=== PATIENT | male | born 1930 | race Caucasian/White ===

== ENCOUNTER → 2016-05-13 | Outpatient (CLI) | payer MEDICARE ==
[~2016-05-13] MED LIST: AMLO5 PO; ATEN1TAB74 PO; HYDR-3288 PO; LEVO75TA3 PO; LISI10TA3 PO; LOPE7.5C PO; LOVA20TA PO; POTA10TA8 PO; PRIL20CA9 PO; PROBCAP11 PO
[2016-05-13 12:36] LABS: AUTOMATED NEUTROPHIL # 3.3 TH/MM3 (1.8-7.7); BASOPHIL % 0.6 % (0.0-2.0); EOSINOPHIL # 0.2 TH/MM3 (0-0.4); EOSINOPHIL % 4.2 % (0.0-4.0); HEMATOCRIT 39.6 % (39.0-51.0); HEMO FLAGS DIFF FINAL; LYMPH % 24.4 % (9.0-44.0); LYMPHOCYTE # 1.4 TH/MM3 (1.0-4.8); MEAN CELL VOLUME 93.8 FL (80.0-100.0); MEAN CORPUSCULAR HGB CONC 34.1 % (32.0-36.0); MONO % 10.5 % (0.0-8.0); NEUT % 60.3 % (16.0-70.0); PLATELET COUNT 145 TH/MM3 (150-450); RED BLOOD COUNT 4.22 MIL/MM3 (4.50-5.90); RED CELL DISTRIBUTION WIDTH 13.9 % (11.6-17.2); WHITE BLOOD COUNT 5.5 TH/MM3 (4.0-11.0)
== END ==
LOC: PLAB 08:12
PROVIDERS: ATTEND Orthopaedic Surgery Sports Medicine
DX: Z01.812 Encounter for preprocedural laboratory examination (principal); Z01.818 Encounter for other preprocedural examination; M75.01 Adhesive capsulitis of right shoulder
CPT/HCPCS: 36415; 85025

== ENCOUNTER → 2016-06-21 | Outpatient (CLI) | payer MEDICARE ==
[2016-06-21 09:41] LABS: ALKALINE PHOSPHATASE 83 U/L (45-117); ALT (GPT) 25 U/L (12-78); ANION GAP 7 MEQ/L (5-15); AST (GOT) 24 U/L (15-37); BLOOD UREA NITROGEN 17 MG/DL (7-18); CHLORIDE 103 MEQ/L (98-107); GLOMERULAR FILTRATION RATE 78 ML/MIN (>89); GLUCOSE,FASTING 105 MG/DL (74-99); LDL CHOLESTEROL 52 MG/DL (0-99); POTASSIUM 3.9 MEQ/L (3.5-5.1); SODIUM (NA) 140 MEQ/L (136-145); TOTAL BILIRUBIN ADULT 0.5 MG/DL (0.2-1.0)
[2016-06-21 10:22] LABS: CREATINE KINASE 63 U/L (39-308)
== END ==
LOC: PLAB 06:45
DX: E78.5 Hyperlipidemia, unspecified (principal); E03.9 Hypothyroidism, unspecified; Z79.899 Other long term (current) drug therapy
CPT/HCPCS: 36415; 80053; 80061; 82550; 84443

== ENCOUNTER → 2016-08-26 | Outpatient (CLI) | payer MEDICARE ==
[2016-08-26 12:57] LABS: AUTOMATED NEUTROPHIL # 3.7 TH/MM3 (1.8-7.7); BASOPHIL % 0.6 % (0.0-2.0); EOSINOPHIL # 0.2 TH/MM3 (0-0.4); EOSINOPHIL % 3.7 % (0.0-4.0); HEMATOCRIT 39.9 % (39.0-51.0); HEMO FLAGS DIFF FINAL; LYMPH % 19.4 % (9.0-44.0); LYMPHOCYTE # 1.1 TH/MM3 (1.0-4.8); MEAN CELL VOLUME 93.3 FL (80.0-100.0); MEAN CORPUSCULAR HEMOGLOBIN 31.5 PG (27.0-34.0); MEAN CORPUSCULAR HGB CONC 33.8 % (32.0-36.0); MONO % 10.1 % (0.0-8.0); NEUT % 66.2 % (16.0-70.0); PLATELET COUNT 161 TH/MM3 (150-450); RED BLOOD COUNT 4.27 MIL/MM3 (4.50-5.90); RED CELL DISTRIBUTION WIDTH 14.4 % (11.6-17.2); WHITE BLOOD COUNT 5.6 TH/MM3 (4.0-11.0)
[2016-08-26 13:17] LABS: ANION GAP 4 MEQ/L (5-15); AST (GOT) 30 U/L (15-37); BICARBONATE 32.9 MEQ/L (21.0-32.0); BLOOD UREA NITROGEN 12 MG/DL (7-18); CHLORIDE 105 MEQ/L (98-107); GLOMERULAR FILTRATION RATE 81 ML/MIN (>89); GLUCOSE,FASTING 96 MG/DL (74-99); POTASSIUM 4.2 MEQ/L (3.5-5.1); SODIUM (NA) 142 MEQ/L (136-145)
[2016-08-26 13:27] LABS: ALKALINE PHOSPHATASE 67 U/L (45-117); ALT (GPT) 34 U/L (12-78); HDL CHOLESTEROL 34.6 MG/DL (40.0-60.0); LDL CHOLESTEROL 61 MG/DL (0-99); TOTAL BILIRUBIN ADULT 0.6 MG/DL (0.2-1.0)
[2016-08-26 13:29] LABS: CREATINE KINASE 74 U/L (39-308)
[2016-08-26 13:33] LABS: WESTERGREN SEDIMENTATION RATE 23 mm/hr (0-20)
== END ==
LOC: PLAB 09:23
PROVIDERS: ATTEND Internal Medicine Cardiovascular Disease
DX: E78.5 Hyperlipidemia, unspecified (principal); I25.10 Atherosclerotic heart disease of native coronary artery without angina pectoris; T84.038D Mechanical loosening of other internal prosthetic joint, subsequent encounter; Z79.899 Other long term (current) drug therapy; Z96.619 Presence of unspecified artificial shoulder joint
CPT/HCPCS: 36415; 80053; 80061; 82550; 85025; 85652; 86140

== ENCOUNTER 2016-12-09 17:02 | Emergency (ER) | payer MEDICARE ==
[2016-12-09 17:07] VITALS: BP 153/66; PULSE 66; RESP 29; TEMP 97.7; O2SAT 98
[2016-12-09] MEDS ORDERED: TETANUS/DIPHTHERIA TOXOID ADULT 0.5 ML VIAL IM ONE (17:45)
--- NOTE | 2016-12-09 17:54 | PD ---
HPI Chief Complaint: Fall Time Seen by Provider: 17:22 Travel History International Travel<30 days: No Contact w/Intl Traveler<30days: No Traveled to known affect area: No History of Present Illness HPI 86-year-old male brought in by private vehicle for evaluation of head injury, hand injury, and left knee injury after mechanical trip and fall on his generator. Injury occurred about an hour ago. He denies loss of consciousness. No antiplatelet or anticoagulant use. He has an obvious left forehead hematoma with abrasion, left anterior knee abrasion, and laceration on the volar aspect over the PIP joint of his left third finger. He denies neck pain. Pain in his head and left hand is moderate, constant, worse with movement and palpation. He was able to ambulate after the fall. PFSH Past Medical History Arthritis: Yes Blood Disorders: No Cancer: No Cardiovascular Problems: Yes (HX [place]) High Cholesterol: Yes Coronary Artery Disease: Yes Diabetes: No Diminished Hearing: No Endocrine: Yes Gastrointestinal Disorders: Yes (ACID REFLUX) GERD: Yes Genitourinary: Yes (KIDNEY STONES) Hepatitis: No Hiatal Hernia: Yes Hypertension: Yes Immune Disorder: Yes (RHEMATOID ARTHRITIS) Kidney Stones: Yes Musculoskeletal: Yes (RIGHT KNEE REPLACMENT) Neurologic: No Psychiatric: No Reproductive: No Respiratory: No Immunizations Current: Yes Myocardial Infarction: Yes Thyroid Disease: Yes Tetanus Vaccination: > 5 Years Influenza Vaccination: Yes Past Surgical History Abdominal Surgery: Yes (TUMOR/ CHOLY REMOVED ) AICD: No Cardiac Surgery: Yes (BALLON) Cholecystectomy: Yes Ear Surgery: No Endocrine Surgery: Yes (GOITER, PARTIAL THYROIDECTOMY) Eye Surgery: No Genitourinary Surgery: Yes (LITHOTRIPSY) Gynecologic Surgery: No Joint Replacement: Yes (RIGHT KNEE) Oral Surgery: No Pacemaker: No Thoracic Surgery: Yes Other Surgery: Yes (LITHOTRIPSY) Social History Alcohol Use: Yes (SOCIAL) Tobacco Use: No Substance Use: No Allergies-Medications (Allergen,Severity, Reaction): Coded Allergies: adhesive (Unverified Allergy, Severe, SILK TAPE = RASH, 12/09/16) aspirin (Unverified Allergy, Severe, 12/09/16) morphine (Unverified Allergy, Severe, 12/09/16) nifedipine (Unverified Allergy, Severe, 12/09/16) Reported Meds & Prescriptions Reported Meds & Active Scripts Active Reported Tenormin (Atenolol) 50 Mg Tab 50 Mg PO DAILY Levothyroxine (Levothyroxine Sodium) 75 Mcg Tab 75 Mcg PO DAILY Lisinopril 10 Mg Tab 10 Mg PO DAILY Lovastatin 20 Mg Tab 20 Mg PO HS Norvasc (Amlodipine Besylate) 5 Mg Tab 5 Mg PO DAILY Review of Systems Except as stated in HPI: all other systems reviewed are Neg Physical Exam Narrative GENERAL: Well-developed, well-nourished, awake, alert, GCS 15, no apparent distress. SKIN: Focused skin assessment warm/dry. Left forehead hematoma with overlying abrasion. Left third finger. Is horizontal laceration over the volar aspect over the PIP joint. Laceration is with moderate depth, no active bleeding, no visible contaminants. FDS and FDP in this finger appear intact. Left fourth finger with proximal ecchymosis and tenderness. Left anterior knee with superficial abrasion. HEAD: Atraumatic. Normocephalic. EYES: Pupils equal and round. No scleral icterus. No injection or drainage. ENT: Mucous membranes pink and moist. NECK: Trachea midline. No JVD. No midline cervical spine step-off or tenderness. CARDIOVASCULAR: Regular rate and rhythm. RESPIRATORY: No accessory muscle use. Clear to auscultation. Breath sounds equal bilaterally. GASTROINTESTINAL: Abdomen soft, non-tender, nondistended. MUSCULOSKELETAL: Skin exam as above. Left third finger with normal range of motion flexion and extension, FDS and FDP appear intact based on exam. The finger is neurovascularly intact. Left knee with skin exam as above with moderate anterior edema with normal range of motion. NEUROLOGICAL: Awake and alert. No obvious cranial nerve deficits. Motor grossly within normal limits. Normal speech. PSYCHIATRIC: Appropriate mood and affect; insight and judgment normal. Data Data Last Documented VS Vital Signs Date Time Temp Pulse Resp B/P (MAP) Pulse Ox O2 Delivery O2 Flow Rate FiO2 12/09/16 17:19 Room Air 12/09/16 17:07 97.7 66 29 153/66 (95) [address] Brain W/O Iv Contrast(Rout) (12/09/16 ) Ct Cerv Spine W/O Contrast (12/09/16 ) Hand, Complete ([id number]) (12/09/16 ) Knee, Complete (4vws) (12/09/16 ) Tetanus/Diphtheria Tox Adult (Tetanus/Di (12/09/16 17:45) Lidocaine 1% Inj (50 Ml) (Xylocaine 1% I (12/09/16 18:45) MDM Medical Decision Making Medical Screen Exam Complete: Yes Emergency Medical Condition: Yes Differential Diagnosis Trip and fall, closed head injury, intracranial trauma, cervical spine injury, finger fracture, finger laceration, left knee contusion versus fracture Narrative Course Vital signs reviewed. Left knee x-ray: Osseous demineralization with no acute fractures. Left hand x-ray: 1. Diffuse osseous demineralization with osteoarthritic changes as detailed above. 2. No acute fracture or radiopaque foreign body. CT head: CONCLUSION: 1. Mild cerebral atrophy. 2. No acute infarct, acute hemorrhage, midline shift or extra axial fluid collections. 3. Small left frontal subgaleal hematoma. CT cervical spine: CONCLUSION: 1. No acute fracture or prevertebral soft tissue swelling. 2. Cervical spondylosis and multilevel foraminal narrowing as described above. 3. 3 mm noncalcified nodule within the right upper lobe which can be further assessed as an outpatient with follow-up CT of the chest if clinically indicated. 4. Granulomatous calcifications within the visualized portions of both upper lobes. 5. Prominent left thyroid lobe and possible previous resection of the right thyroid lobe. Left third finger laceration repaired by my PA. See her note for further details. Again the FDS, FDP, and extensor tendon appeared to be intact finger. Case discussed with on-call hand surgeon Dr. Banda who will be happy to follow -up with the patient in her office in the next 1-2 days. Patient was made aware of all findings and provided a copy of his CT cervical spine report with instructions to take it to his primary care physician to have them follow up with his pulmonary nodule. Left forehead abrasion and left knee abrasion were irrigated and antibiotic ointment applied. Patient will be driven home by one of his friends. He was informed on when to return to the emergency department. PMD follow-up this week. He verbalizes understanding and agreement with plan. Diagnosis Primary Impression: Fall Qualified Codes: W19.XXXA - Unspecified fall, initial encounter Additional Impressions: Head injury Qualified Codes: S09.90XA - Unspecified injury of head, initial encounter Scalp hematoma Qualified Codes: S00.03XA - Contusion of scalp, initial encounter Finger laceration Qualified Codes: S61.213A - Laceration without foreign body of left middle finger without damage to nail, initial encounter Abrasions of multiple sites Pulmonary nodule Referrals: Sabina Banda MD 1 day Hand surgeon Primary Care Physician 3 days Additional Instructions: Follow-up with hand surgeon Dr. Banda tomorrow. Follow-up with your primary care physician this week. Return to the emergency department for worsening symptoms or any other concerns as discussed. Disposition: 01 DISCHARGE HOME Condition: Stable José Luong MD Dec 09, 2016 17:54
--- NOTE | 2016-12-09 18:15 | RADRPT ---
EXAM DATE/TIME: 12/09/2016 17:46 [facility] COMPARISON: No previous studies available for comparison. INDICATIONS : Laceration left 3rd digit. MEDICAL HISTORY : None. SURGICAL HISTORY : None. ENCOUNTER: Initial ACUITY: 1 day PAIN SCORE: 4/10 LOCATION: Left hand, 3rd digit. FINDINGS: Three view examination of the left hand demonstrates no soft tissue swelling, dislocation, or fractur e. The carpal bones appear intact. Degenerative osteophytic changes at the first CMC and multiple i nterphalangeal joints. Bony mineralization is diminished. CONCLUSION: 1. Diffuse osseous demineralization with osteoarthritic changes as detailed above. 2. No acute fracture or radiopaque foreign body. Momo Godwin MD on December 09, 2016 at 18:12 Board Certified Radiologist. This report was verified electronically.
--- NOTE | 2016-12-09 18:18 | RADRPT ---
EXAM DATE/TIME: 12/09/2016 17:51 [facility] COMPARISON: No previous studies available for comparison. INDICATIONS : Left knee pain. MEDICAL HISTORY : None. SURGICAL HISTORY : None. ENCOUNTER: Initial ACUITY: 1 day PAIN SCORE: 2/10 LOCATION: Left knee. FINDINGS: Four view examination of the left knee demonstrates no evidence of fracture or dislocation. There is some bony demineralization. Atherosclerotic calcification of the regional vasculature. The articular surfaces are intact. The suprapatellar soft tissues have a normal configuration. CONCLUSION: Osseous demineralization with no acute fracture Momo Godwin MD on December 09, 2016 at 18:15 Board Certified Radiologist. This report was verified electronically.
--- NOTE | 2016-12-09 18:31 | RADRPT ---
EXAM DATE/TIME: 12/09/2016 18:15 [facility] COMPARISON: No previous studies available for comparison. INDICATIONS : Tripped and fell. Left frontal head and neck pain. RADIATION DOSE: 55.52 CTDIvol (mGy) MEDICAL HISTORY : Cardiovascular disease. Hypertension. SURGICAL HISTORY : None. ENCOUNTER: Initial ACUITY: 1 day PAIN SCALE: 5/10 LOCATION: frontal TECHNIQUE: Multiple contiguous axial images were obtained of the head. Using automated exposure control and adj ustment of the mA and/or kV according to patient size, radiation dose was kept as low as reasonably a chievable to obtain optimal diagnostic quality images. DICOM format image data is available electro nically for review and comparison. FINDINGS: CEREBRUM: Mild cerebral atrophy is noted. No evidence of midline shift, mass lesion, hemorrhage or acute infar ction. No extra-axial fluid collections are seen. POSTERIOR FOSSA: The cerebellum and brainstem are intact. The 4th ventricle is midline. The cerebellopontine angle i s unremarkable. EXTRACRANIAL: The visualized portion of the orbits is intact. Minimal mucosal thickening is noted within the left s phenoid sinus and right anterior ethmoid air cells. SKULL: The calvaria is intact. No evidence of skull fracture. Small left frontal subgaleal hematoma is note d. CONCLUSION: 1. Mild cerebral atrophy. 2. No acute infarct, acute hemorrhage, midline shift or extra axial fluid collections. 3. Small left frontal subgaleal hematoma. Valeriano Parisi MD on December 09, 2016 at 18:27 Board Certified Radiologist. This report was verified electronically.
[2016-12-09] MEDS ORDERED: LIDOCAINE HCL 1% 50 ML VIAL INFIL ONE (18:45)
--- NOTE | 2016-12-09 18:50 | RADRPT ---
EXAM DATE/TIME: 12/09/2016 18:15 [facility] COMPARISON: No previous studies available for comparison. INDICATIONS : Tripped and fell. Left sided head and neck pain. RADIATION DOSE: 26.64 CTDIvol (mGy) MEDICAL HISTORY : Cardiovascular disease. Hypertension. SURGICAL HISTORY : None. ENCOUNTER: Initial ACUITY: 1 day PAIN SCALE: 5/10 LOCATION: Neck TECHNIQUE: Volumetric scanning of the cervical spine was performed. Multiplanar reconstructions in the sagittal, coronal and oblique axial planes were performed. Using automated exposure control and adjustment o f the mA and/or kV according to patient size, radiation dose was kept as low as reasonably achievable to obtain optimal diagnostic quality images. DICOM format image data is available electronically f or review and comparison. FINDINGS: There is no acute fracture or prevertebral soft tissue swelling. Cervical spondylosis is noted from C3 through C7 and is most significant at C5-6 and C6-7. Mild bilateral foraminal narrowing is noted at C5-6 and to a lesser extent at C3-4, C4-5 and C6-7. No bony spinal canal stenosis is noted. The bony relationship and alignment between C1 and C2 is well maintained. There is a 3 mm noncalcified n odule within the right upper lung field which is indeterminate. This can be assessed as an outpatien t with follow-up CT of the chest at a later date if clinically indicated. Granulomatous calcificatio ns are noted within the visualized upper lobes. There is a prominent left thyroid lobe and possible previous resection of the right thyroid lobe. CONCLUSION: 1. No acute fracture or prevertebral soft tissue swelling. 2. Cervical spondylosis and multilevel foraminal narrowing as described above. 3. 3 mm noncalcified nodule within the right upper lobe which can be further assessed as an outpatien t with follow-up CT of the chest if clinically indicated. 4. Granulomatous calcifications within the visualized portions of both upper lobes. 5. Prominent left thyroid lobe and possible previous resection of the right thyroid lobe. Valeriano Parisi MD on December 09, 2016 at 18:35 Board Certified Radiologist. This report was verified electronically.
--- NOTE | 2016-12-09 19:23 | PD ---
Physical Exam Time Seen by Provider: 19:00 Data Data Last Documented VS Vital Signs Date Time Temp Pulse Resp B/P (MAP) Pulse Ox O2 Delivery O2 Flow Rate FiO2 12/09/16 17:19 Room Air 12/09/16 17:07 97.7 66 29 153/66 (95) [address] Brain W/O Iv Contrast(Rout) (12/09/16 ) Ct Cerv Spine W/O Contrast (12/09/16 ) Hand, Complete (Dig8pun) (12/09/16 ) Knee, Complete (4vws) (12/09/16 ) Tetanus/Diphtheria Tox Adult (Tetanus/Di (12/09/16 17:45) Lidocaine 1% Inj (50 Ml) (Xylocaine 1% I (12/09/16 18:45) MDM Medical Record Reviewed: Yes Supervised Visit with GOOD: Yes Narrative Course I was asked by Dr. Luong to repair laceration on this patient. Please see his note for further details. Procedures Procedure Narrative LACERATION LOCATION: Left third finger LENGTH: 2 cm NUMBER OF STITCHES/CORIE: 7 simple interrupted REPAIR: The area of the laceration was prepped with Betadine and sterilely draped. The laceration was infiltrated with 1% lidocaine. The wound was copiously irrigated and explored without evidence of foreign body, tendon injury or neurovascular injury. The wound was closed using 5-0 Prolene. This was a single layer repair. A sterile dressing was applied. The patient was advised to keep the dressing clean and dry. Patient tolerated the procedure well. Diagnosis Primary Impression: Fall Qualified Codes: W19.XXXA - Unspecified fall, initial encounter Additional Impressions: Finger laceration Qualified Codes: S61.213A - Laceration without foreign body of left middle finger without damage to nail, initial encounter Pulmonary nodule Abrasions of multiple sites Scalp hematoma Qualified Codes: S00.03XA - Contusion of scalp, initial encounter Head injury Qualified Codes: S09.90XA - Unspecified injury of head, initial encounter Referrals: Sabina Banda MD 1 day Hand surgeon Primary Care Physician 3 days Additional Instruction: Follow-up with hand surgeon Dr. Banda tomorrow. Follow-up with your primary care physician this week. Return to the emergency department for worsening symptoms or any other concerns as discussed. Disposition: 01 DISCHARGE HOME Condition: Stable [place],Ruby PA Dec 09, 2016 19:23
[2016-12-09 20:21] VITALS: BP 150/82
== END 2016-12-09 20:22 | disposition home or self-care (01) ==
LOC: PHED 17:02
DX: S61.213A Laceration without foreign body of left middle finger without damage to nail, initial encounter (principal); S09.90XA Unspecified injury of head, initial encounter; S00.03XA Contusion of scalp, initial encounter; R91.1 Solitary pulmonary nodule; W01.0XXA Fall on same level from slipping, tripping and stumbling without subsequent striking against object, initial encounter; E78.00 Pure hypercholesterolemia, unspecified; K21.9 Gastro-esophageal reflux disease without esophagitis; I10 Essential (primary) hypertension; I25.2 Old myocardial infarction
CPT/HCPCS: 12001; 70450; 72125; 73130; 73564; 90471; 90714

== ENCOUNTER → 2017-01-30 | Outpatient (CLI) | payer MEDICARE ==
[~2017-01-30] MED LIST changes: -HYDR-3288 PO; -LOPE7.5C PO; -POTA10TA8 PO; -PRIL20CA9 PO; -PROBCAP11 PO
[2017-01-30 09:50] LABS: HEMATOCRIT 39.1 % (39.0-51.0); MEAN CELL VOLUME 92.3 FL (80.0-100.0); MEAN CORPUSCULAR HGB CONC 33.6 % (32.0-36.0); PLATELET COUNT 148 TH/MM3 (150-450); RED BLOOD COUNT 4.24 MIL/MM3 (4.50-5.90); RED CELL DISTRIBUTION WIDTH 15.7 % (11.6-17.2); REVIEW FLAG FINAL; WHITE BLOOD COUNT 5.7 TH/MM3 (4.0-11.0)
[2017-01-30 10:17] LABS: ANION GAP 7 MEQ/L (5-15); AST (GOT) 27 U/L (15-37); BLOOD UREA NITROGEN 19 MG/DL (7-18); CHLORIDE 105 MEQ/L (98-107); GLOMERULAR FILTRATION RATE 78 ML/MIN (>89); GLUCOSE,FASTING 100 MG/DL (74-99); SODIUM (NA) 141 MEQ/L (136-145)
[2017-01-30 10:28] LABS: ALKALINE PHOSPHATASE 91 U/L (45-117); ALT (GPT) 30 U/L (12-78); HDL CHOLESTEROL 35.3 MG/DL (40.0-60.0); LDL CHOLESTEROL 37 MG/DL (0-99); TOTAL BILIRUBIN ADULT 0.8 MG/DL (0.2-1.0)
[2017-01-30 10:38] LABS: CREATINE KINASE 73 U/L (39-308)
[2017-01-30 21:03] LABS: HEMOGLOBIN F 0.9 %
[2017-01-30 21:44] LABS: HEMOGLOBIN A1a 1.7 %; HEMOGLOBIN Ao 83.6 %; HEMOGLOBIN LA1C 1.9 %; HEMOGLOBIN P3 3.9 %
== END ==
LOC: PLAB 06:56
DX: Z12.5 Encounter for screening for malignant neoplasm of prostate (principal); E78.5 Hyperlipidemia, unspecified; D69.6 Thrombocytopenia, unspecified; Z79.899 Other long term (current) drug therapy
CPT/HCPCS: 36415; 80053; 80061; 82550; 83036; 84443; 85027; G0103

== ENCOUNTER 2017-07-15 20:03 | Emergency (ER) | payer MEDICARE ==
[~2017-07-15] VITALS: Ht 177.8 cm; Wt 88.8 kg
[2017-07-15 20:09] VITALS: BP 145/74; PULSE 70; RESP 18; TEMP 98.1; O2SAT 96
[2017-07-15] MEDS ORDERED: OMEP20TA93 PO (20:26)
[2017-07-15] MEDS ORDERED: ATOR20TA15 PO (20:26)
--- NOTE | 2017-07-15 20:56 | PD ---
HPI Chief Complaint: Laceration/Skin Injury Time Seen by Provider: 20:19 Travel History International Travel<30 days: No Contact w/Intl Traveler<30days: No Traveled to known affect area: No History of Present Illness HPI 86-year-old male complains of skin tear of the right elbow which occurred while he was gardening earlier and he lost balance and leaned into the concrete wall of his house. Was not exposed to swell. His last tetanus was one year ago. Minimal bleeding noted. Minimal stinging pain reported. He states, "I just need it cleaned up." PFSH Past Medical History Arthritis: Yes Blood Disorders: No Cancer: No Cardiovascular Problems: Yes (HX [place]) High Cholesterol: Yes Coronary Artery Disease: Yes Diabetes: No Diminished Hearing: No Endocrine: Yes Gastrointestinal Disorders: Yes (ACID REFLUX) GERD: Yes Genitourinary: Yes (KIDNEY STONES) Hepatitis: No Hiatal Hernia: Yes Hypertension: Yes Immune Disorder: Yes (RHEMATOID ARTHRITIS) Kidney Stones: Yes Musculoskeletal: Yes (RIGHT KNEE REPLACMENT) Neurologic: No Psychiatric: No Reproductive: No Respiratory: No Immunizations Current: Yes Myocardial Infarction: Yes Thyroid Disease: Yes ?: Not Past Surgical History Abdominal Surgery: Yes (TUMOR/ CHOLY REMOVED ) AICD: No Cardiac Surgery: Yes (BALLON) Cholecystectomy: Yes Ear Surgery: No Endocrine Surgery: Yes (GOITER, PARTIAL THYROIDECTOMY) Eye Surgery: No Genitourinary Surgery: Yes (LITHOTRIPSY) Gynecologic Surgery: No Joint Replacement: Yes (RIGHT KNEE) Oral Surgery: No Pacemaker: No Thoracic Surgery: Yes Other Surgery: Yes (LITHOTRIPSY) Social History Alcohol Use: Yes (SOCIAL) Tobacco Use: No Substance Use: No Allergies-Medications (Allergen,Severity, Reaction): Coded Allergies: adhesive (Unverified Allergy, Severe, SILK TAPE = RASH, 12/09/16) aspirin (Unverified Allergy, Severe, 12/09/16) morphine (Unverified Allergy, Severe, 12/09/16) nifedipine (Unverified Allergy, Severe, 12/09/16) Reported Meds & Prescriptions Reported Meds & Active Scripts Active Reported Omeprazole 20 Mg Tab 20 Mg PO DAILY Atorvastatin (Atorvastatin Calcium) 20 Mg Tab 20 Mg PO HS Tenormin (Atenolol) 50 Mg Tab 50 Mg PO DAILY Levothyroxine (Levothyroxine Sodium) 75 Mcg Tab 75 Mcg PO DAILY Lisinopril 10 Mg Tab 10 Mg PO DAILY Norvasc (Amlodipine Besylate) 5 Mg Tab 5 Mg PO DAILY Review of Systems Except as stated in HPI: all other systems reviewed are Neg General / Constitutional: No: Fever Physical Exam Narrative GENERAL: 86-year-old male pleasant well-nourished audible no acute distress Vital Signs Date Time Temp Pulse Resp B/P (MAP) Pulse Ox O2 Delivery O2 Flow Rate FiO2 07/15/17 20:09 98.1 70 18 145/74 (97) 96 SKIN: Warm and dry. There is about a 3 cm in maximum diameter somewhat irregular [place] shaped skin tear overlying the lateral condyle of the right elbow. HEAD: Atraumatic. Normocephalic. EYES: Pupils equal and round. No scleral icterus. No injection or drainage. NEUROLOGICAL: Awake and alert. No obvious cranial nerve deficits. Motor grossly within normal limits. Five out of 5 muscle strength in the arms and legs. Normal speech. Data Data Last Documented VS Vital Signs Date Time Temp Pulse Resp B/P (MAP) Pulse Ox O2 Delivery O2 Flow Rate FiO2 07/15/17 20:09 98.1 70 18 145/74 (97) 96 Orders Orders Ed Discharge Order (07/15/17 20:53) MDM Medical Decision Making Medical Screen Exam Complete: Yes Emergency Medical Condition: Yes Medical Record Reviewed: Yes Differential Diagnosis Laceration, avulsion, cellulitis Narrative Course wound irrigated and dressed by undersigned Overall the wound is fairly minimal and will require no further care other than twice daily irrigation and a Band-Aid dressing. Diagnosis Primary Impression: Skin tear of elbow without complication Qualified Codes: S51.011A - Laceration without foreign body of right elbow, initial encounter Med/Other Pt SpecificInfo: No Change to Meds Disposition: 01 DISCHARGE HOME Condition: Stable Josue Dang MD Jul 15, 2017 20:56
== END 2017-07-15 21:07 | disposition home or self-care (01) ==
LOC: PHEFT 20:03
DX: S51.011A Laceration without foreign body of right elbow, initial encounter (principal); E78.00 Pure hypercholesterolemia, unspecified; I10 Essential (primary) hypertension; K21.9 Gastro-esophageal reflux disease without esophagitis; W22.01XA Walked into wall, initial encounter; Y93.H2 Activity, gardening and landscaping; Y92.007 Garden or yard of unspecified non-institutional (private) residence as the place of occurrence of the external cause
CPT/HCPCS: 99281

== ENCOUNTER → 2017-07-24 | Outpatient (CLI) | payer MEDICARE ==
[~2017-07-24] MED LIST changes: +ATOR20TA15 PO; -LOVA20TA PO; +OMEP20TA93 PO
[2017-07-24 14:46] LABS: HEMOGLOBIN A1C 6.1 % (4.3-6.0)
[2017-07-24 14:50] LABS: HEMOGLOBIN 13.5 GM/DL (13.0-17.0); MEAN CELL VOLUME 94.1 FL (80.0-100.0); MEAN CORPUSCULAR HEMOGLOBIN 31.8 PG (27.0-34.0); MEAN CORPUSCULAR HGB CONC 33.8 % (32.0-36.0); MEAN PLATELET VOLUME 8.9 FL (7.0-11.0); PLATELET COUNT 165 TH/MM3 (150-450); RED BLOOD COUNT 4.25 MIL/MM3 (4.50-5.90); RED CELL DISTRIBUTION WIDTH 14.5 % (11.6-17.2); WHITE BLOOD COUNT 6.7 TH/MM3 (4.0-11.0)
[2017-07-24 14:57] LABS: ALBUMIN 3.8 GM/DL (3.4-5.0); AST (GOT) 37 U/L (15-37); BICARBONATE 28.7 MEQ/L (21.0-32.0); BLOOD UREA NITROGEN 17 MG/DL (7-18); CALCIUM 9.2 MG/DL (8.5-10.1); CHLORIDE 106 MEQ/L (98-107); CREATININE 0.95 MG/DL (0.60-1.30); GLOMERULAR FILTRATION RATE 75 ML/MIN (>89); GLUCOSE,FASTING 108 MG/DL (74-99); SODIUM (NA) 141 MEQ/L (136-145)
[2017-07-24 14:58] LABS: CHOLESTEROL 86 MG/DL (120-200)
[2017-07-24 15:09] LABS: ALKALINE PHOSPHATASE 79 U/L (45-117); ALT (GPT) 38 U/L (12-78); CHOLESTEROL/ HDL RATIO 2.89 RATIO; HDL CHOLESTEROL 29.7 MG/DL (40.0-60.0); LDL CHOLESTEROL 36 MG/DL (0-99); TOTAL BILIRUBIN ADULT 0.9 MG/DL (0.2-1.0); TOTAL PROTEIN 7.3 GM/DL (6.4-8.2); TRIGLYCERIDES 100 MG/DL (42-150)
== END ==
LOC: PLAB 09:10
PROVIDERS: ATTEND Internal Medicine Hematology
DX: E78.5 Hyperlipidemia, unspecified (principal); C7A.012 Malignant carcinoid tumor of the ileum; I10 Essential (primary) hypertension; D69.6 Thrombocytopenia, unspecified; Z79.899 Other long term (current) drug therapy
CPT/HCPCS: 36415; 80053; 80061; 82550; 83036; 84443; 85027

== ENCOUNTER → 2017-08-28 | Outpatient (CLI) | payer MEDICARE ==
[2017-08-30 17:51] LABS: ENDOMYSIAL AB SCREEN ND (NEGATIVE); ENDOMYSIAL AB TITER ND (<1:5)
== END ==
LOC: PLAB 11:07
PROVIDERS: ATTEND Internal Medicine Gastroenterology
DX: R19.4 Change in bowel habit (principal)
CPT/HCPCS: 36415; 82784; 83516; 86140

== ENCOUNTER → 2017-09-02 | Outpatient (CLI) | payer MEDICARE | LOC: PLAB 07:47 | PROVIDERS: ATTEND Internal Medicine Gastroenterology | DX: R19.4 Change in bowel habit (principal) ==

== ENCOUNTER → 2017-09-16 | Outpatient (CLI) | payer MEDICARE | LOC: PLAB 11:01 | DX: Z13.29 Encounter for screening for other suspected endocrine disorder (principal); Z79.899 Other long term (current) drug therapy | CPT/HCPCS: 36415; 84443 ==